=== PATIENT | male | born 1990 | race African-American/Black ===

== ENCOUNTER 2023-12-14 13:15 | Emergency (ER) | payer OTHER, SELFPAY ==
--- NOTE | 2023-12-14 13:25 | ED.GENADULT ---
HPI - General Adult General Chief complaint: Urogenital-Male Stated complaint: Headache Time Seen by Provider: 12/14/23 13:45 Source: patient, RN notes reviewed and old records reviewed Mode of arrival: ambulatory Limitations: no limitations History of Present Illness HPI narrative: 33-year-old male presents to the [facility] with concerns for bumps to his scrotum bilaterally States that that the bumps appears about 2 weeks ago. States he has been shaving the. Area, stop shaving and the thumbs have not improved. Denies any pain. No concerns for STDs. Denies any urinary symptoms. Denies any penile discharge. Onset (ago): week(s) (2) Related Data Allergies Allergy/AdvReac Type Severity Reaction Status Date / Time No Known Allergies Allergy Unknown Verified 12/14/23 13:38 Review of Systems Review of Systems: All systems reviewed & are unremarkable except as noted in HPI and below Constitutional: Constitutional: Reports no additional constitutional complaints ENT: Reports system reviewed and no additional complaints, except as documented Cardiovascular: Cardiovascular: Reports no additional cardiovascular complaints, Denies chest pain and Denies dyspnea Respiratory: Respiratory: Reports no additional respiratory complaints, Denies chest congestion, Denies cough and Denies dyspnea Gastrointestinal: Gastrointestinal: Reports no additional gastrointestinal complaints, Denies abdominal pain, Denies nausea and Denies vomiting Genitourinary: Genitourinary: Reports as per HPI Musculoskeletal: Musculoskeletal: Reports no additional musculoskeletal complaints Integumentary/Breasts: Skin/Breast: Reports system reviewed and no additional complaints, except as docu [facility] Family History Family History Grandparent Diabetes mellitus Hypertension Social History Social History Smoking status: Current every day smoker Alcohol intake: current Comments At the time of my signature, I reviewed and agree with the nursing past medical, surgical, social, and family history. There is no relevant family history pertinent to the patient complaint. Exam Const: General: cooperative, healthy appearing, comfortable, no acute distress, well developed, alert and well nourished Nutritional Appearance: well nourished Orientation/consciousness: patient oriented x3 Limitations: no limitations HENMT: Head: normal to inspection Ears: hearing grossly normal bilaterally and external ears normal Face/Nose/Sinus: Normal external nose present, normal facial exam and face symmetric Face and sinus: normal facial exam and face symmetric Eyes: General: appearance normal, both eyes and all related structures Alignment and Position: alignment normal Periorbital: periorbital findings normal Neck: Neck: normal visual inspection, full ROM, no lymphadenopathy and no meningeal signs Chest: Chest palpation & inspection: normal inspection of the chest Resp: Effort & Inspection: normal respiratory effort and able to speak in complete sentences Auscultation: clear to auscultation bilaterally, no crackles, no rales, no rhonchi and no wheezes Cardio: Rate: regular rate : Scrotum: no ecchymosis, not edematous, not erythematous, testes descended bilaterally, no scrotal swelling, no spermatoceles and other (small bumps to the bilateral scrotum. ) Skin: General skin exam: normal color and no rashes or lesions noted Lesions: no lesions Rashes: no rashes Wounds: no wounds Neuro: General: patient oriented x3, gait normal, tone normal, moves all extremities and no meningeal signs Cognition (Neuro): normal cognition Speech: normal speech Gait exam (Neuro): Normal gait present Extrem: General: normal to inspection, full ROM, capillary refill normal and normal gait Psych: Appearance: grossly normal and well kempt Mental Status: mental status grossly normal Speech and movement: Normal speech and movement present and Clear speech present Affect: normal affect Attitude: cooperative Course Course Level of Care: Express Care Visit Vital Signs Vital signs: Vital Signs Temperature 98.6 F 12/14/23 13:31 Pulse Rate 69 12/14/23 13:31 Respiratory Rate 16 12/14/23 13:31 Blood Pressure 128/68 12/14/23 13:31 Pulse Oximetry 100 12/14/23 13:31 Oxygen Delivery Room Air 12/14/23 13:31 Temperature 98.6 F 12/14/23 13:31 Pulse Rate 69 12/14/23 13:31 Respiratory Rate 16 12/14/23 13:31 Blood Pressure 128/68 12/14/23 13:31 Pulse Oximetry 100 12/14/23 13:31 Oxygen Delivery Room Air 12/14/23 13:31 Reviewed Medical Decision Making MDM Narrative Medical decision making narrative: Patient sitting comfortably in exam room. Nontoxic, vitals stable. Patient in no acute distress Patient presents for concerns for skin changes to his scrotum. Has a couple of areas of concern for folliculitis, will treat with topical clindamycin Has a no other area of skin tag versus genital warts, unable to do further testing or freeze in clinic. Discussed with patient to follow-up with primary care provider or call his insurance company and see if there is a local physical therapy aide. Patient appropriate for outpatient treatment and follow-up Discharge instructions reviewed with patient, as well as provided in writing per nursing staff. The instructions also include specific and strict return/GO TO THE ER as well as f/u information. All questions have been answered, and the patient deny any further questions with discharge and discharge plan. Some parts of this dictation were generated by voice recognition software and may contain typographical and/or grammatical inaccuracies. Differential Diagnosis Differential Diagnosis: Skin tags, genital warts, folliculitis Medical Records Medical records reviewed: Yes I reviewed the external patient's medical records. Vital Signs Vital Signs: Vital Signs Temperature 98.6 F 12/14/23 13:31 Pulse Rate 69 12/14/23 13:31 Respiratory Rate 16 12/14/23 13:31 Blood Pressure 128/68 12/14/23 13:31 Pulse Oximetry 100 12/14/23 13:31 Oxygen Delivery Room Air 12/14/23 13:31 Temperature 98.6 F 12/14/23 13:31 Pulse Rate 69 12/14/23 13:31 Respiratory Rate 16 12/14/23 13:31 Blood Pressure 128/68 12/14/23 13:31 Pulse Oximetry 100 12/14/23 13:31 Oxygen Delivery Room Air 12/14/23 13:31 Reviewed Lab Data Lab results reviewed: Yes I reviewed the patient's lab results. Labs: Reviewed Critical Care Time Critical Care Time Critical Care Time: No Discharge Plan Discharge Clinical Impression: Folliculitis, Skin tag Patient Disposition: Home, Self-Care Condition: Stable Instructions: Antibiotic Form, Folliculitis (ED) Additional Instructions: Follow-up with your primary care provider Follow-up with Dermatology, it is recommended you call your insurance company and see which physical therapy aide they were commend for further evaluation, testing and treatment Patient Language: Syriac Prescriptions: New clindamycin phosphate 1 % solution 1 applic topical BID 5 Days Qty: 30 0RF Follow-up/Referrals: Katie Olivares APRN [Primary Care Provider] - 1 Week Stand Alone Forms: Work/School Release IP Time of Disposition: 14:12
[2023-12-14 13:31] VITALS: BP 128/68; PULSE 69; RESP 16; TEMP 37; O2SAT 100
== END 2023-12-14 14:24 | disposition home or self-care (01) ==
PROVIDERS: Emergency Provider Nurse Practitioner; PCP Nurse Practitioner Family
DX: L73.9 Follicular disorder, unspecified (principal); L91.8 Other hypertrophic disorders of the skin; F17.200 Nicotine dependence, unspecified, uncomplicated
CPT/HCPCS: 99213; G0463